=== PATIENT | female | born 1985 | race Caucasian/White ===

== ENCOUNTER 2018-06-13 11:50 | Emergency (ER) | payer BC ==
[2018-06-13 12:09] VITALS: BP 130/95; PULSE 94; O2SAT 95
[2018-06-13] MEDS ORDERED: Sodium Chloride 0.9% 1000 ML 1,000 ML IV SCH (12:15)
[2018-06-13] MEDS ORDERED: BABY ASPIRIN 81 MG CHEW PO ONE (12:15)
[2018-06-13] MEDS ORDERED: Nitrostat 0.4 MG (ED) SL ONE ×2 (12:15→12:32)
[2018-06-13] MEDS ORDERED: BABY ASPIRIN 81 MG CHEW ONE (12:32)
[2018-06-13] MEDS ORDERED: Sodium Chloride 0.9% 1000 ML 1,000 ML ONE (12:32)
[2018-06-13 12:44] LABS: Basophil (Absolute #) 0.06 (0-0.4); Eosinophil % 1.4 % (0.00-5.0); Eosinophil (Absolute #) 0.09 (0-0.5); Granulocyte Absolute (ANC) 3.61 (1.4-6.9); Granulocytes % 57.9 % (36.0-66.0); Hematocrit 46.8 % (35-47); Hemoglobin 16.2 gm/dl (12.0-16.0); Lymphocyte (Absolute #) 1.91 (1.0-4.6); Lymphocytes % 30.6 % (24.0-44.0); Mean Corpuscular Hgb Concent. 34.6 g/dl (32-36); Mean Platelet Volume 9.8 fl (6-9.5); Monocyte (Absolute #) 0.57 (0.0-1.3); Monocytes % 9.1 % (0.0-12.0); Platelet Count 314 K/mm3 (150-450); Red Cell Distribution Width 12.4 % (11.5-14.0); White Blood Count 6.2 K/mm3 (4.0-10.5)
[2018-06-13 12:49] LABS: Mean Corpuscular Hemoglobin 31.1 pg (26-32)
[2018-06-13 12:50] LABS: INR 1.05 (0.8-3.0); PROTIME 12.2 SECONDS (9.95-12.35)
[2018-06-13 13:10] LABS: ALBUMIN 4.7 g/dL (3.5-5.0); ALKALINE PHOSPHATASE 80 U/L (38-126); ANION GAP 16.8 MEQ/L (5-15); BLOOD UREA NITROGEN 21 mg/dL (7-17); CHLORIDE 100 mmol/L (98-107); Calcium 9.5 mg/dL (8.4-10.2); Carbon Dioxide 27 mmol/L (22-30); Creatinine 1 0.79 mg/dL (0.52-1.04); D-DIMER QUANTITATION < 215 ng/mL (215-500); Glucose 97 mg/dL (74-106); Potassium 3.6 mmol/L (3.5-5.1); SGOT/AST 40 U/L (14-36); SGPT/ALT 55 U/L (0-35); SODIUM 140 mmol/L (137-145)
--- NOTE | 2018-06-13 13:14 | ERPHSYRPT ---
- History of Present Illness Time Seen by Provider: 06/13/18 12:10 Historian: patient Exam Limitations: clinical condition Patient Subjective Stated Complaint: pt reports intermittent chest pain for the last 2 days as well as some high bp. readings have been 164/112, 151/102, 163/ 108, pt reports history of panic disorder. pt reports she is taking a new medication for her HTN, it is TRIAT/HCTZ 37.5/25mg. Triage Nursing Assessment: pt is aox3, pupils perrl, pt appears in no distress at this time, afebrile, resps easy and non labored, radial pulses strong and equal, cap refill < 3 seconds, no edema appreciated. Physician History: PATIENT WITH HISTORY OF HYPERCHOLESTEROLEMIA, HYPERTENSION, OBESITY, COMPLAINS OF ACUTE ONSET OF SUBSTERNAL CHEST TIGHTNESS PAIN SCALE 4/10 OVER THE PAST 2 DAYS. SHE DENIES ASSOCIATED DYSPLNEA, DIAPHORESIS, PALPITATIONS AND RADIATION OF THE PAIN TO HER NECK, JAW AND ARMS. PATIENT STATES HER XANAX MEDICATION RAN OUT COUPLE OF DAYS AGO, USED FOR ANXIETY. PATIENT DENIES CHEST PAIN UPON ARRIVAL TO THE EMERGENCY ROOM. Timing/Duration: yesterday Activities at Onset: none Quality: tightness Location: substernal Chest Pain Radiation: no radiation Severity of Pain-Max: moderate Severity of Pain-Current: none Modifying Factors: Improves With: other (ANXIETY) Associated Symptoms: denies symptoms Aspirin Treatment Today: 81 mg x 4, provided by ED Allergies/Adverse Reactions: loratadine [From Claritin] Allergy (Verified 06/13/18 12:09) Penicillins Allergy (Verified 06/13/18 12:09) Home Medications: Levothyroxine Sodium 75 Mcg [Synthroid 75 Mcg] 75 mcg PO DAILY 10/16/12 [ History] RX: Hctz/Triamterene 25/37.5 mg [Maxzide 25MG] 37.5 mg PO DAILY 06/13/18 [ History] Simvastatin 10 mg PO DAILY 06/13/18 [History] Hx Tetanus, Diphtheria Vaccination/Date Given: Yes Hx Influenza Vaccination/Date Given: Yes Hx Pneumococcal Vaccination/Date Given: No Immunizations Up to Date: Yes - Review of Systems Constitutional: No Fever, No Chills Eyes: No Symptoms Ears, Nose, & Throat: No Symptoms Respiratory: No Symptoms, No Cough, No Dyspnea Cardiac: Chest Pain, No Edema, No Syncope Abdominal/Gastrointestinal: No Symptoms, No Abdominal Pain, No Nausea, No Vomiting, No Diarrhea Genitourinary Symptoms: No Symptoms, No Dysuria Musculoskeletal: No Symptoms, No Back Pain, No Neck Pain Skin: No Rash Neurological: No Dizziness, No Focal Weakness, No Sensory Changes Psychological: No Symptoms Endocrine: No Symptoms All Other Systems: Reviewed and Negative - Past Medical History Pertinent Past Medical History: Yes Neurological History: Migraines Cardiac History: Arrhythmia, Hypertension Respiratory History: No Pertinent History Endocrine Medical History: Hypoglycemia, Other Musculoskeletal History: No Pertinent History Psycho-Social History: Anxiety, Depression, Panic Disorder Other Medical History: tachycardia, thyroid problems (doesn't know if hyper and hypo). - Past Surgical History Past Surgical History: Yes Female Surgical History: Tubal Ligation - Social History Smoking Status: Never smoker Exposure to second hand smoke: No Drug Use: none Patient Lives Alone: No - Female History Hx Last Menstrual Period: ablation Hx Now: No - Nursing Vital Signs Nursing Vital Signs: Initial Vital Signs Temperature 97.7 F 06/13/18 11:55 Pulse Rate 94 H 06/13/18 11:55 Respiratory Rate 20 06/13/18 11:55 Blood Pressure 130/95 06/13/18 11:55 O2 Sat by Pulse Oximetry 95 06/13/18 11:55 Pain Scale Pain Intensity 0 - Physical Exam General Appearance: no apparent distress, alert Eye Exam: PERRL/EOMI, eyes nml inspection Ears, Nose, Throat Exam: normal ENT inspection, moist mucous membranes Neck Exam: normal inspection, non-tender, supple, full range of motion Respiratory Exam: normal breath sounds, lungs clear, No respiratory distress Cardiovascular Exam: regular rate/rhythm, normal heart sounds, tachycardia Gastrointestinal/Abdomen Exam: soft, No tenderness, No mass Back Exam: normal inspection, No CVA tenderness, No vertebral tenderness Extremity Exam: normal inspection, normal range of motion Neurologic Exam: alert, oriented x 3, cooperative, normal mood/affect, sensation nml, No motor deficits Skin Exam: normal color, warm, dry SpO2 Interpretation: normal SpO2: 95 O2 Delivery: Room Air - Course EKG Interpreted by Me: RATE, Sinus Rhythm, Sinus Tach, NORMAL AXIS Ordered Tests: Active Orders 24 hr Category Date Time Status Esc[employer] Secretary STAT Care 06/13/18 12:16 Active EKG-ER Only STAT Care 06/13/18 12:15 Active IV Insertion STAT Care 06/13/18 12:15 Active Oxygen-ED Only Nasal Cannula 2 lpm Care 06/13/18 12:15 Active CBC W DIFF Stat Lab 06/13/18 12:19 Completed CMP Stat Lab 06/13/18 12:19 Completed D-DIMER QUANTITATION Stat Lab 06/13/18 12:19 Completed HCG,QUALITATIVE URINE Stat Lab 06/13/18 12:23 Completed PROTIME WITH INR Stat Lab 06/13/18 12:19 Completed TROPONIN Q3H Lab 06/13/18 12:19 Completed TROPONIN Q3H Lab 06/13/18 15:15 Ordered TROPONIN Q3H Lab 06/13/18 18:15 Ordered TROPONIN Q3H Lab 06/13/18 21:15 Ordered TROPONIN Q3H Lab 06/14/18 00:15 Ordered Medication Summary Generic Name Dose Route Start Last Admin Trade Name Freq PRN Reason Stop Dose Admin Sodium Chloride 1,000 mls @ 100 mls/hr 06/13/18 12:15 06/13/18 12:36 Sodium Chloride 0.9% 1000 Ml IV 07/13/18 12:14 100 mls/hr .Q10H JAN Administration Discontinued Medications Generic Name Dose Route Start Last Admin Trade Name Freq PRN Reason Stop Dose Admin Aspirin 324 mg 06/13/18 12:15 06/13/18 12:35 Baby Aspirin 81 Mg Chew PO 06/13/18 12:16 324 mg STAT ONE Administration Aspirin Confirm 06/13/18 12:32 Baby Aspirin 81 Mg Chew Administered 06/13/18 12:33 Dose 81 mg .ROUTE .STK-MED ONE Nitroglycerin 0.4 mg 06/13/18 12:15 06/13/18 12:38 Nitrostat 0.4 Mg (Ed) SL 06/13/18 12:16 Not Given STAT ONE Nitroglycerin Confirm 06/13/18 12:32 Nitrostat 0.4 Mg (Ed) Administered 06/13/18 12:33 Dose 0.4 mg SL .STK-MED ONE Lab/Rad Data: Laboratory Result Diagrams 06/13/18 12:19 06/13/18 12:19 Laboratory Results 06/13/18 06/13/18 06/13/18 Range/Units 12:23 12:19 12:19 WBC (4.0-10.5) K/mm3 RBC (4.1-5.4) M/mm3 Hgb (12.0-16.0) gm/dl Hct (35-47) % MCV (78-100) fl MCH (26-32) pg MCHC (32-36) g/dl RDW (11.5-14.0) % Plt Count (150-450) K/mm3 MPV (6-9.5) fl Gran % (36.0-66.0) % Eos # (Auto) (0-0.5) Absolute Lymphs (auto) (1.0-4.6) Absolute Monos (auto) (0.0-1.3) Lymphocytes % (24.0-44.0) % Monocytes % (0.0-12.0) % Eosinophils % (0.00-5.0) % Basophils % (0.0-0.4) % Absolute Granulocytes (1.4-6.9) Basophils # (0-0.4) PT 12.2 (9.95-12.35) SECONDS INR 1.05 (0.8-3.0) D-Dimer < 215 L (215-500) ng/mL Sodium 140 (137-145) mmol/L Potassium 3.6 (3.5-5.1) mmol/L Chloride 100 (98-107) mmol/L Carbon Dioxide 27 (22-30) mmol/L Anion Gap 16.8 H (5-15) MEQ/L BUN 21 H (7-17) mg/dL Creatinine 0.79 (0.52-1.04) mg/dL Estimated GFR > 60.0 ML/MIN Glucose 97 (74-106) mg/dL Calcium 9.5 (8.4-10.2) mg/dL Total Bilirubin 0.50 (0.2-1.3) mg/dL AST 40 H (14-36) U/L ALT 55 H (0-35) U/L Alkaline Phosphatase 80 (38-126) U/L Troponin I (0.000-0.034) ng/mL Serum Total Protein 8.0 (6.3-8.2) g/dL Albumin 4.7 (3.5-5.0) g/dL Urine HCG, Qual NEGATIVE (Negative) 06/13/18 06/13/18 Range/Units 12:19 12:19 WBC 6.2 (4.0-10.5) K/mm3 RBC 5.20 (4.1-5.4) M/mm3 Hgb 16.2 H (12.0-16.0) gm/dl Hct 46.8 (35-47) % MCV 90.0 (78-100) fl MCH 31.1 (26-32) pg MCHC 34.6 (32-36) g/dl RDW 12.4 (11.5-14.0) % Plt Count 314 (150-450) K/mm3 MPV 9.8 H (6-9.5) fl Gran % 57.9 (36.0-66.0) % Eos # (Auto) 0.09 (0-0.5) Absolute Lymphs (auto) 1.91 (1.0-4.6) Absolute Monos (auto) 0.57 (0.0-1.3) Lymphocytes % 30.6 (24.0-44.0) % Monocytes % 9.1 (0.0-12.0) % Eosinophils % 1.4 (0.00-5.0) % Basophils % 1.0 (0.0-0.4) % Absolute Granulocytes 3.61 (1.4-6.9) Basophils # 0.06 (0-0.4) PT (9.95-12.35) SECONDS INR (0.8-3.0) D-Dimer (215-500) ng/mL Sodium (137-145) mmol/L Potassium (3.5-5.1) mmol/L Chloride (98-107) mmol/L Carbon Dioxide (22-30) mmol/L Anion Gap (5-15) MEQ/L BUN (7-17) mg/dL Creatinine (0.52-1.04) mg/dL Estimated GFR ML/MIN Glucose (74-106) mg/dL Calcium (8.4-10.2) mg/dL Total Bilirubin (0.2-1.3) mg/dL AST (14-36) U/L ALT (0-35) U/L Alkaline Phosphatase (38-126) U/L Troponin I < 0.012 (0.000-0.034) ng/mL Serum Total Protein (6.3-8.2) g/dL Albumin (3.5-5.0) g/dL Urine HCG, Qual (Negative) - Progress Progress: improved Progress Note: 06/13/18 13:15 ADMINISTERED BABY ASPIRIN 81MG X 4 DOSES, PATIENT REFUSES NITROGLYCERIN - Departure Time of Disposition: 14:00 Departure Disposition: Home Clinical Impression: ATYPICAL CHEST PAIN, ANXIETY Condition: Stable Critical Care Time: No Referrals: LATHA RM [Primary Care Provider] - Additional Instructions: FOLLOWUP WITH YOUR PRIMARY CARE PROVIDER FOR EVALUATION AND STRESS TEST. ATARAX 25MG EVERY 6 HOURS NEEDED FOR ANXIETY. RETURN TO EMERGENCY ROOM FOR CHEST PAIN. Prescriptions: Hydroxyzine HCl 25 mg [Atarax 25 mg] 25 mg PO Q6H PRN PRN #15 tablet PRN Reason: Anxiety
== END 2018-06-13 14:14 | disposition home or self-care (01) ==
LOC: ED 11:50
DX: R07.89 Other chest pain (principal); F41.9 Anxiety disorder, unspecified; I10 Essential (primary) hypertension; F32.9 Major depressive disorder, single episode, unspecified; E78.00 Pure hypercholesterolemia, unspecified; E66.9 Obesity, unspecified
CPT/HCPCS: 36000; 36415; 80053; 84484; 84703; 85025; 85379; 85610; 93005; 93041; 96360; 99284; A9270-GY

== ENCOUNTER 2019-07-23 23:59 | Emergency (ER) | payer OTHER ==
[2019-07-24] MEDS ORDERED: Catapres TTS-2 PATCH TOP SCH (00:45)
--- NOTE | 2019-07-24 00:50 | ERPHSYRPT ---
- History of Present Illness Time Seen by Provider: 07/24/19 00:39 Source: patient Exam Limitations: no limitations Patient Subjective Stated Complaint: pt states that she has been not feeling well for the past few weeks, pt states that today she checked her blood pressure and it measured 156/96 and the second was 184/104, pt states that she has hypertension and is suppose to take medication, pt states that she has stop taking her blood pressure medication after the of her daughter, pt states that she has a lot of stressor in her life right now Triage Nursing Assessment: pt ambulated into the er, pt is axo x4, pt is restless and anxious, pt b/p 178/113, heart tones are clear, lung sound clear, strong pulses in all extremities, no edema present Physician History: 33yo wf w HTN who stopped her HCTZ last Nov. Pt denies focal weakness/chest pain /dyspnea/N/V/fever/preg. Timing/Duration: other (Chronic hypertension) Severity: moderate Modifying Factors: Improves With: other Associated Symptoms: denies symptoms Allergies/Adverse Reactions: loratadine [From Claritin] Allergy (Severe, Verified 07/24/19 00:25) Anaphylactic Reaction Penicillins Allergy (Mild, Verified 07/24/19 00:25) Home Medications: Levothyroxine Sodium 75 Mcg [Synthroid 75 Mcg] 75 mcg PO DAILY 10/16/12 [ History] Simvastatin 10 mg PO HS 06/13/18 [History] Cetirizine HCl/Pseudoephedrine [Zyrtec-D Tablet] 1 tab PO HS 07/24/19 [History] Omeprazole [Prilosec] 40 mg PO DAILY 07/24/19 [History] Hx Tetanus, Diphtheria Vaccination/Date Given: No (unknown) Hx Influenza Vaccination/Date Given: Yes Hx Pneumococcal Vaccination/Date Given: No Travel Risk - International Travel Have you traveled outside of the country in past 3 weeks: No If Yes where:: [place] - Coronavirus Screening Has patient experienced Coronavirus symptoms: No - Review of Systems Constitutional: Lethargy Eyes: No Symptoms Ears, Nose, & Throat: No Symptoms Respiratory: No Symptoms Cardiac: No Symptoms Abdominal/Gastrointestinal: No Symptoms Genitourinary Symptoms: No Symptoms Musculoskeletal: No Symptoms Skin: No Symptoms Neurological: No Symptoms Psychological: No Symptoms Endocrine: No Symptoms Hematologic/Lymphatic: No Symptoms Immunological/Allergic: No Symptoms - Past Medical History Pertinent Past Medical History: Yes Neurological History: Migraines ENT History: No Pertinent History Cardiac History: Arrhythmia, Hypertension Respiratory History: No Pertinent History Endocrine Medical History: Hypoglycemia, Thyroid Cancer Musculoskeletal History: No Pertinent History GI Medical History: No Pertinent History Psycho-Social History: Anxiety, Depression, Panic Disorder Other Medical History: tachycardia, thyroid problems (doesn't know if hyper and hypo). - Past Surgical History Past Surgical History: Yes Neuro Surgical History: No Pertinent History Cardiac: No Pertinent History Respiratory: No Pertinent History Gastrointestinal: No Pertinent History Genitourinary: No Pertinent History Musculoskeletal: No Pertinent History Female Surgical History: Tubal Ligation Other Surgical History: ablation - Social History Smoking Status: Former smoker Exposure to second hand smoke: No Drug Use: none Patient Lives Alone: No Significant Family History: no pertinent family hx - Female History Hx Now: No - Nursing Vital Signs Nursing Vital Signs: Initial Vital Signs Temperature 97.7 F 07/24/19 00:11 Pulse Rate 86 07/24/19 00:11 Respiratory Rate 14 07/24/19 00:11 Blood Pressure 178/113 07/24/19 00:11 O2 Sat by Pulse Oximetry 99 07/24/19 00:11 Pain Scale Pain Intensity 0 - Physical Exam General Appearance: no apparent distress Eye Exam: PERRL/EOMI, eyes nml inspection Ears, Nose, Throat Exam: normal ENT inspection, TMs normal Neck Exam: normal inspection, non-tender, supple, full range of motion, No meningismus, No mass, No Brudzinski, No Kernig's, No carotid bruit, No JVD Respiratory Exam: normal breath sounds, lungs clear, airway intact, No chest tenderness, No respiratory distress Cardiovascular Exam: regular rate/rhythm, normal heart sounds, normal peripheral pulses, No murmur Pelvic Exam: not done Rectal Exam: deferred Back Exam: normal inspection, normal range of motion, No CVA tenderness Extremity Exam: normal inspection, normal range of motion Neurologic Exam: alert, oriented x 3, cooperative, county judge II-XII nml as tested, normal mood/affect, nml cerebellar function, nml station & gait, sensation nml, No motor deficits, No sensory deficit, No disoriented, No confusion Skin Exam: normal color, warm, dry Lymphatic Exam: No adenopathy SpO2 Interpretation: normal SpO2: 99 O2 Delivery: Room Air - Course Nursing assessment & vital signs reviewed: Yes Ordered Tests: Active Orders 24 hr Category Date Time Status Isolation, Initiate & Maintain Q4H Care 07/24/19 00:24 Active Medication Summary Discontinued Medications Generic Name Dose Route Start Last Admin Trade Name Marilee PRN Reason Stop Dose Admin Clonidine HCl 0.2 mg 07/24/19 00:45 07/24/19 00:54 Catapres Tts-2 Patch TOP 08/23/19 00:44 0.2 mg Q7D JAN Administration Clonidine HCl Confirm 07/24/19 00:51 Catapres Tts-2 Patch Administered 07/24/19 00:52 Dose 0.2 mg .ROUTE .[employer] ONE - Progress Progress: improved Progress Note: 07/24/19 00:49 0.2 Clonidine patch placed for 1 week, and pt started on Norvasc 5mg po daily. - Departure Departure Disposition: Home Clinical Impression: Hypertension Condition: Stable Critical Care Time: No Referrals: LATHA RM [Primary Care Provider] - Instructions: High Blood Pressure in Adults Additional Instructions: Keep Clonidine patch on for 1 week and start Norvasc once a day Follow up with your family MD in 1-2 days return to ER for focal weakness/worsening headache/chest pain/temperature greater than 100.5 Prescriptions: Amlodipine Besylate 5 mg [Norvasc 5 mg] 5 mg PO DAILY #30 tablet
[2019-07-24] MEDS ORDERED: Catapres TTS-2 PATCH ONE (00:51)
[2019-07-24 01:04] VITALS: BP 148/91; PULSE 78
[2019-07-24 01:14] VITALS: O2SAT 99
== END 2019-07-24 01:05 | disposition home or self-care (01) ==
LOC: ED 23:59
DX: I10 Essential (primary) hypertension (principal); Z85.850 Personal history of malignant neoplasm of thyroid; F41.9 Anxiety disorder, unspecified; F32.9 Major depressive disorder, single episode, unspecified
CPT/HCPCS: 99283; A9270-GY

== ENCOUNTER 2020-07-28 21:09 | Emergency (ER) | payer BC, OTHER ==
[2020-07-28] MEDS ORDERED: Norflex 60 MG/2 ML IM ONE (21:43)
[2020-07-28] MEDS ORDERED: TORAdol 30 mg Injection IM ONE (21:43)
[2020-07-28] MEDS ORDERED: TORAdol 30 mg Injection ONE (21:45)
[2020-07-28] MEDS ORDERED: Norflex 60 MG/2 ML ONE (21:45)
--- NOTE | 2020-07-28 22:28 | ERPHSYRPT ---
- History of Present Illness Time Seen by Provider: 07/28/20 21:11 Source: patient Exam Limitations: no limitations Patient Subjective Stated Complaint: pt states "I was walking up the stairs and got a sharp pain in my back." Triage Nursing Assessment: pt ambulated into the er; pt is axo x4; c/o lower back pain; pt states 5/10 pain to lower back; no deformity present to back; tenderness with palpation to lower back; limited ROM due to pain; vitals wnl Physician History: 34 years old female presented in the ER with chief complaint of sudden onset right lower back pain this morning while she was taking a flight of stairs. Since then she is having off-and-on sharp shooting pain moderate to severe intensity which is aggravated with activity and partial relief with resting. Nonradiating pain without any associated numbness tingling weakness of lower extremities/loss of bowel or bladder control. Denies any midline back pain. No fall or trauma reported. Timing/Duration: yesterday Method of Injury: twisted Quality: sharp Back Pain Location: paraspinous muscles Severity of Pain-Max: moderate Severity of Pain-Current: moderate Modifying Factors: Improves With: immobilization, rest. Worsens With: movement Associated Symptoms: denies symptoms Previous symptoms: no prior history Allergies/Adverse Reactions: loratadine [From Claritin] Allergy (Severe, Verified 07/28/20 21:44) Anaphylactic Reaction Penicillins Allergy (Mild, Verified 07/28/20 21:44) Home Medications: Levothyroxine Sodium 75 Mcg [Synthroid 75 Mcg] 75 mcg PO DAILY 10/16/12 [History] Simvastatin 10 mg PO HS 06/13/18 [History] Cetirizine HCl/Pseudoephedrine [Zyrtec-D Tablet] 1 tab PO HS 07/24/19 [History] Omeprazole [Prilosec] 40 mg PO DAILY 07/24/19 [History] Hx Tetanus, Diphtheria Vaccination/Date Given: Yes Hx Influenza Vaccination/Date Given: Yes Hx Pneumococcal Vaccination/Date Given: No Travel Risk - International Travel Have you traveled outside of the country in past 3 weeks: No - Coronavirus Screening Are you exhibiting any of the following symptoms?: No Close contact with a COVID-19 positive Pt in past 14-21 Days: No - Vaccine Status Have you recieved a Covid-19 vaccination: No - Past Medical History Pertinent Past Medical History: Yes Neurological History: Migraines ENT History: No Pertinent History Cardiac History: Arrhythmia, Hypertension Respiratory History: No Pertinent History Endocrine Medical History: Diabetes Type II, Hypoglycemia, Hypothyroidism, Thyroid Cancer Musculoskeletal History: No Pertinent History GI Medical History: No Pertinent History Psycho-Social History: Anxiety, Depression, Panic Disorder Other Medical History: tachycardia, thyroid problems (doesn't know if hyper and hypo). - Past Surgical History Past Surgical History: Yes Neuro Surgical History: No Pertinent History Cardiac: No Pertinent History Respiratory: No Pertinent History Gastrointestinal: No Pertinent History Genitourinary: No Pertinent History Musculoskeletal: No Pertinent History Female Surgical History: Tubal Ligation Other Surgical History: ablation - Social History Smoking Status: Former smoker Exposure to second hand smoke: No Drug Use: none Patient Lives Alone: No Significant Family History: no pertinent family hx - Female History Hx Now: No - Nursing Vital Signs Nursing Vital Signs: Initial Vital Signs Temperature 97.6 F 07/28/20 21:18 Pulse Rate 112 H 07/28/20 21:18 Respiratory Rate 18 07/28/20 21:18 Blood Pressure 136/93 07/28/20 21:18 O2 Sat by Pulse Oximetry 98 07/28/20 21:18 Pain Scale Pain Intensity [Lower Back] 5 Pain Intensity 3 - Physical Exam SpO2: 98 Ordered Tests: Medication Summary Discontinued Medications Generic Name Dose Route Start Last Admin Trade Name Faizanq PRN Reason Stop Dose Admin Ketorolac Tromethamine 30 mg 07/28/20 21:43 07/28/20 21:47 Toradol 30 Mg Injection IM 07/28/20 21:44 30 mg STAT ONE Administration Ketorolac Tromethamine Confirm 07/28/20 21:45 Toradol 30 Mg Injection Administered 07/28/20 21:46 Dose 30 mg .ROUTE .STK-MED ONE Orphenadrine Citrate 60 mg 07/28/20 21:43 07/28/20 21:46 Norflex 60 Mg/2 Ml IM 07/28/20 21:44 60 mg STAT ONE Administration Orphenadrine Citrate Confirm 07/28/20 21:45 Norflex 60 Mg/2 Ml Administered 07/28/20 21:46 Dose 60 mg .ROUTE .STK-MED ONE - Progress Progress: improved, pain not gone completely Progress Note: 07/28/20 23:02 34 years old is evaluated for sudden onset low back pain especially on the right sacroiliac area. No midline tenderness at all. Negative neuro exam in lower extremities. Given symptomatic treatment, on reevaluation feeling better. Do not think she needs imaging or any other work-up and is stable for discharge on pain medication, muscle relaxant and outpatient follow-up recommended. Discussed signs symptoms of worsening including cardiac while needing return to ER which she seems understanding. Counseled pt/family regarding: diagnosis, need for follow-up - Departure Departure Disposition: Home Clinical Impression: Low back strain Qualifiers: Encounter type: initial encounter Qualified Code(s): S39.012A - Strain of muscle, fascia and tendon of lower back, initial encounter Condition: Stable Critical Care Time: No Referrals: LATHA RM [Primary Care Provider] - (1-2 days for reevaluation) Instructions: Low Back Pain (DC) Additional Instructions: Take pain medications and muscle relaxants as needed. Avoid exertional activities. Follow-up with primary care for reevaluation. Return to ER for intractable pain, numbness tingling weakness of lower extremities/loss of bowel or bladder control. Prescriptions: Hydrocodone/APAP 5/325 [[place] 5/325 mg] 1 each PO Q6H PRN PRN #10 tablet MDD 4 PRN Reason: Pain Cyclobenzaprine HCl 10 mg [Flexeril 10 MG] 10 mg PO TID #20 tablet
[2020-07-28 23:12] VITALS: BP 121/78; PULSE 98
[2020-07-29 00:03] VITALS: O2SAT 98
== END 2020-07-28 23:12 | disposition home or self-care (01) ==
LOC: ED 21:09
DX: S39.012A Strain of muscle, fascia and tendon of lower back, initial encounter (principal); X50.3XXA Overexertion from repetitive movements, initial encounter; X50.9XXA Other and unspecified overexertion or strenuous movements or postures, initial encounter; Y93.01 Activity, walking, marching and hiking; Y92.89 Other specified places as the place of occurrence of the external cause
CPT/HCPCS: 96372; 99284; J1885; J2360

== ENCOUNTER 2020-10-14 19:53 | Emergency (ER) | payer OTHER ==
[2020-10-14] MEDS ORDERED: TYLENOL EXTRA STRENGTH 500 MG PO PRN (20:33)
--- NOTE | 2020-10-14 20:33 | ERPHSYRPT ---
- History of Present Illness Historian: patient Patient Subjective Stated Complaint: pt states she has had intermittent abd pain today. states 3 times she has had pain in her upper abd that feels like her intestines are twisting. states no pain in between. Triage Nursing Assessment: pt alert and oriented, answers questions approp. pt ambulatory with steady gait noted. respirations nonlabored with lungs cta. abd soft and nontender to light palpation. bowel sounds present x4. Physician History: 35 yo obese wf w RUQ pain x8 hours. Pain is 0 at present but has been up to a 10. She denies N/V but has had some diarrhea yesterday. Pt also denies melena/hematochezia/dysuria/hematuria/chest pain/dyspnea. She has never had this pain before. Timing/Duration: other (8hrs) Quality: other (twisting) Abdominal Pain Onset Location: RUQ Pain Radiation: no radiation Severity of Pain-Max: severe Severity of Pain-Current: none Modifying Factors: Improves With: movement Associated Symptoms: diarrhea, No back, No chest pain, No diaphoresis, No fever/chills, No fatigue, No headache, No heartburn, No loss of appetite, No nausea, No neck pain, No rash, No shortness of breath, No syncope, No vomiting, No weakness Previous symptoms: no prior history Allergies/Adverse Reactions: loratadine [From Claritin] Allergy (Severe, Verified 10/14/20 20:19) Anaphylactic Reaction levothyroxine sodium [From Euthyrox] Allergy (Intermediate, Verified 10/14/20 20:19) Hives Penicillins Allergy (Mild, Verified 10/14/20 20:19) Home Medications: Levothyroxine Sodium 75 Mcg [Synthroid 75 Mcg] 75 mcg PO DAILY 10/16/12 [History] Simvastatin 10 mg PO HS 06/13/18 [History] Cetirizine HCl/Pseudoephedrine [Zyrtec-D Tablet] 1 tab PO HS 07/24/19 [History] Omeprazole [Prilosec] 40 mg PO DAILY 07/24/19 [History] Hx Tetanus, Diphtheria Vaccination/Date Given: Yes Hx Influenza Vaccination/Date Given: Yes Hx Pneumococcal Vaccination/Date Given: No Immunizations Up to Date: Yes Travel Risk - International Travel Have you traveled outside of the country in past 3 weeks: No - Coronavirus Screening Are you exhibiting any of the following symptoms?: No Close contact with a COVID-19 positive Pt in past 14-21 Days: No - Vaccine Status Have you recieved a Covid-19 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: 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[employer] - Vaccination Dates Date of 2cond Vaccination (if applicable): september 2020 - Review of Systems Constitutional: No Symptoms Eyes: No Symptoms Ears, Nose, & Throat: No Symptoms Respiratory: No Symptoms Cardiac: No Symptoms Abdominal/Gastrointestinal: No Symptoms, Abdominal Pain, Diarrhea Genitourinary Symptoms: No Symptoms Musculoskeletal: No Symptoms Skin: No Symptoms Neurological: No Symptoms Psychological: No Symptoms Endocrine: No Symptoms Hematologic/Lymphatic: No Symptoms Immunological/Allergic: Pollen Allergy - Past Medical History Pertinent Past Medical History: Yes Neurological History: Migraines ENT History: No Pertinent History Cardiac History: Arrhythmia, Hypertension Respiratory History: No Pertinent History Endocrine Medical History: Diabetes Type II, Hypothyroidism Musculoskeletal History: No Pertinent History GI Medical History: No Pertinent History Psycho-Social History: Anxiety, Depression, Panic Disorder Other Medical History: tachycardia, thyroid problems (doesn't know if hyper and hypo). - Past Surgical History Past Surgical History: Yes Neuro Surgical History: No Pertinent History Cardiac: No Pertinent History Respiratory: No Pertinent History Gastrointestinal: No Pertinent History Genitourinary: No Pertinent History Musculoskeletal: No Pertinent History Female Surgical History: Tubal Ligation Other Surgical History: uterine ablation - Social History Smoking Status: Former smoker Exposure to second hand smoke: No Drug Use: none Patient Lives Alone: No Significant Family History: no pertinent family hx - Female History Hx Last Menstrual Period: uterine ablation- irreg Hx Now: No - Nursing Vital Signs Nursing Vital Signs: Initial Vital Signs Temperature 98.2 F 10/14/20 20:07 Pulse Rate 115 H 10/14/20 20:07 Respiratory Rate 18 10/14/20 20:07 Blood Pressure 140/89 10/14/20 20:07 O2 Sat by Pulse Oximetry 97 10/14/20 20:07 Pain Scale Pain Intensity 0 Hypertensive-tachycardic - Physical Exam General Appearance: no apparent distress Eye Exam: PERRL/EOMI, eyes nml inspection Ears, Nose, Throat Exam: normal ENT inspection, TMs normal, pharynx normal, moist mucous membranes Neck Exam: normal inspection, non-tender, supple, full range of motion Respiratory Exam: normal breath sounds, lungs clear, airway intact Cardiovascular Exam: tachycardia, No murmur Gastrointestinal/Abdomen Exam: soft, normal bowel sounds, tenderness (Mild RUQ ttp/Pain worse when pt sits up) Back Exam: normal inspection, normal range of motion, No CVA tenderness Extremity Exam: normal inspection, normal range of motion Neurologic Exam: alert, oriented x 3, cooperative, 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 as tested, normal mood/affect Skin Exam: normal color, warm, dry, No rash Lymphatic Exam: No adenopathy SpO2 Interpretation: normal SpO2: 97 O2 Delivery: Room Air - CT Exams Abdomen/Pelvis CT Interpretation: Tele-radiologist Report (MERCER/Nothing acute) Ordered Tests: Active Orders 24 hr Category Date Time Status IV Insertion STAT Care 10/14/20 20:27 Completed ABDOMEN AND PELVIS W/0 CONTRAS [CT] Stat Exams 10/14/20 21:36 Taken AMYLASE Stat Lab 10/14/20 20:30 Completed CBC W DIFF Stat Lab 10/14/20 20:30 Completed CMP Stat Lab 10/14/20 20:30 Completed HCG QUALITATIVE,SERUM Stat Lab 10/14/20 20:30 Completed LIPASE Stat Lab 10/14/20 20:30 Completed TROPONIN Q3H Lab 10/14/20 20:30 Completed UA W/RFX UR CULTURE Stat Lab 10/14/20 20:28 Completed Medication Summary Discontinued Medications Generic Name Dose Route Start Last Admin Trade Name Freq PRN Reason Stop Dose Admin Acetaminophen 1,000 mg 10/14/20 20:33 10/14/20 20:35 Tylenol Extra Strength 500 Mg PO 11/13/20 20:32 1,000 mg Q4H PRN PRN Administration HEADACHE Acetaminophen Confirm 10/14/20 20:34 Tylenol Extra Strength 500 Mg Administered 10/14/20 20:35 Dose 1,000 mg .ROUTE .STK-MED ONE Ketorolac Tromethamine 30 mg 10/14/20 23:13 10/14/20 23:23 Toradol 30 Mg Injection IV 10/14/20 23:14 30 mg STAT ONE Administration Ketorolac Tromethamine Confirm 10/14/20 23:20 Toradol 30 Mg Injection Administered 10/14/20 23:21 Dose 30 mg .ROUTE .STK-MED ONE Lab/Rad Data: Laboratory Result Diagrams 10/14/20 20:30 10/14/20 20:30 Laboratory Results 10/14/20 10/14/20 10/14/20 Range/Units 20:30 20:30 20:30 WBC (4.0-10.5) K/mm3 RBC (4.1-5.4) M/mm3 Hgb (12.0-16.0) gm/dl Hct (35-47) % MCV (78-100) fl MCH (26-32) pg MCHC (32-36) g/dl RDW (11.5-14.0) % Plt Count (150-450) K/mm3 MPV (7.5-11.0) fl Gran % (36.0-66.0) % Eos # (Auto) (0-0.5) Absolute Lymphs (auto) (1.0-4.6) Absolute Monos (auto) (0.0-1.3) Lymphocytes % (24.0-44.0) % Monocytes % (0.0-12.0) % Eosinophils % (0.00-5.0) % Basophils % (0.0-0.4) % Absolute Granulocytes (1.4-6.9) Basophils # (0-0.4) Sodium 138 (137-145) mmol/L Potassium 3.1 L (3.5-5.1) mmol/L Chloride 97 L (98-107) mmol/L Carbon Dioxide 25 (22-30) mmol/L Anion Gap 18.5 H (5-15) MEQ/L BUN 21 H (7-17) mg/dL Creatinine 0.86 (0.52-1.04) mg/dL Estimated GFR > 60.0 ML/MIN Glucose 118 H (74-106) mg/dL Calcium 10.1 (8.4-10.2) mg/dL Total Bilirubin 0.30 (0.2-1.3) mg/dL AST 33 (14-36) U/L ALT 31 (0-35) U/L Alkaline Phosphatase 76 (38-126) U/L Troponin I < 0.012 (0.000-0.034) ng/mL Serum Total Protein 8.2 (6.3-8.2) g/dL Albumin 4.9 (3.5-5.0) g/dL Amylase 48 (30-110) U/L Lipase 53 (23-300) U/L Serum , Qual NEGATIVE (Negative) Urine Color (YELLOW) Urine Appearance (CLEAR) Urine pH (5-6) Ur Specific [place] (1.005-1.025) Urine Protein (Negative) Urine Ketones (NEGATIVE) Urine Blood (0-5) Korey/ul Urine Nitrite (NEGATIVE) Urine Bilirubin (NEGATIVE) Urine Urobilinogen (0-1) mg/dL Ur Leukocyte Esterase (NEGATIVE) Urine WBC (Auto) (0-5) /HPF Urine RBC (Auto) (0-2) /HPF U Epithel Cells (Auto) (FEW) /HPF Urine Bacteria (Auto) (NEGATIVE) /HPF Urine Mucus (Auto) (NEGATIVE) /HPF Urine Culture Reflexed (NO) Urine Glucose (NEGATIVE) mg/dL 10/14/20 10/14/20 Range/Units 20:30 20:28 WBC 11.8 H (4.0-10.5) K/mm3 RBC 4.90 (4.1-5.4) M/mm3 Hgb 14.9 (12.0-16.0) gm/dl Hct 44.5 (35-47) % MCV 90.8 (78-100) fl MCH 30.4 (26-32) pg MCHC 33.5 (32-36) g/dl RDW 12.9 (11.5-14.0) % Plt Count 393 (150-450) K/mm3 MPV 9.6 (7.5-11.0) fl Gran % 73.8 H (36.0-66.0) % Eos # (Auto) 0.12 (0-0.5) Absolute Lymphs (auto) 2.13 (1.0-4.6) Absolute Monos (auto) 0.79 (0.0-1.3) Lymphocytes % 18.1 L (24.0-44.0) % Monocytes % 6.7 (0.0-12.0) % Eosinophils % 1.0 (0.00-5.0) % Basophils % 0.4 (0.0-0.4) % Absolute Granulocytes 8.70 H (1.4-6.9) Basophils # 0.05 (0-0.4) Sodium (137-145) mmol/L Potassium (3.5-5.1) mmol/L Chloride (98-107) mmol/L Carbon Dioxide (22-30) mmol/L Anion Gap (5-15) MEQ/L BUN (7-17) mg/dL Creatinine (0.52-1.04) mg/dL Estimated GFR ML/MIN Glucose (74-106) mg/dL Calcium (8.4-10.2) mg/dL Total Bilirubin (0.2-1.3) mg/dL AST (14-36) U/L ALT (0-35) U/L Alkaline Phosphatase (38-126) U/L Troponin I (0.000-0.034) ng/mL Serum Total Protein (6.3-8.2) g/dL Albumin (3.5-5.0) g/dL Amylase (30-110) U/L Lipase (23-300) U/L Serum , Qual (Negative) Urine Color YELLOW (YELLOW) Urine Appearance CLEAR (CLEAR) Urine pH 6.0 (5-6) Ur Specific [place] 1.015 (1.005-1.025) Urine Protein NEGATIVE (Negative) Urine Ketones NEGATIVE (NEGATIVE) Urine Blood NEGATIVE (0-5) Korey/ul Urine Nitrite NEGATIVE (NEGATIVE) Urine Bilirubin NEGATIVE (NEGATIVE) Urine Urobilinogen NEGATIVE (0-1) mg/dL Ur Leukocyte Esterase NEGATIVE (NEGATIVE) Urine WBC (Auto) 0-2 (0-5) /HPF Urine RBC (Auto) 0-2 (0-2) /HPF U Epithel Cells (Auto) RARE (FEW) /HPF Urine Bacteria (Auto) RARE (NEGATIVE) /HPF Urine Mucus (Auto) SLIGHT (NEGATIVE) /HPF Urine Culture Reflexed NO (NO) Urine Glucose NEGATIVE (NEGATIVE) mg/dL - Progress Progress Note: 10/14/20 23:13 30mg IV Toradol Counseled pt/family regarding: lab results, diagnosis, need for follow-up, rad results - Departure Departure Disposition: Home Clinical Impression: Abdominal pain Condition: Stable Critical Care Time: No Referrals: LATHA RM [Primary Care Provider] - Instructions: Acute Abdomen (Belly Pain), Adult (DC) Additional Instructions: Follow up with your family MD in 1-2 days Return to ER for increasing pain or temperature greater than 100.5 Prescriptions: Dicyclomine HCl 20 mg [Bentyl 20 mg] 20 mg PO Q4H PRN PRN #14 tablet PRN Reason: Pain
[2020-10-14] MEDS ORDERED: TYLENOL EXTRA STRENGTH 500 MG ONE (20:34)
[2020-10-14 20:47] LABS: Appearance CLEAR (CLEAR); Bacteria RARE /HPF (NEGATIVE); Bilirubin NEGATIVE (NEGATIVE); Blood NEGATIVE Ery/ul (0-5); Epithelial Cells RARE /HPF (FEW); Glucose NEGATIVE (NEGATIVE); Ketones NEGATIVE (NEGATIVE); Leukocyte Esterase NEGATIVE (NEGATIVE); Mucus SLIGHT /HPF (NEGATIVE); Nitrite NEGATIVE (NEGATIVE); Protein,Urine Dip NEGATIVE (Negative); RBC 0-2 /HPF (0-2); Specific Gravity 1.015 (1.005-1.025); Urobilinogen NEGATIVE mg/dL (0-1); WBC 0-2 /HPF (0-5)
[2020-10-14 20:53] LABS: BASOPHIL % 0.4 % (0.0-0.4); Basophil (Absolute #) 0.05 (0-0.4); Eosinophil (Absolute #) 0.12 (0-0.5); Hematocrit 44.5 % (35-47); Hemoglobin 14.9 gm/dl (12.0-16.0); Lymphocyte (Absolute #) 2.13 (1.0-4.6); Lymphocytes % 18.1 % (24.0-44.0); Mean Cell Volume 90.8 fl (78-100); Mean Corpuscular Hemoglobin 30.4 pg (26-32); Mean Corpuscular Hgb Concent. 33.5 g/dl (32-36); Mean Platelet Volume 9.6 fl (7.5-11.0); Monocyte (Absolute #) 0.79 (0.0-1.3); Monocytes % 6.7 % (0.0-12.0); Neutrophil % 73.8 % (36.0-66.0); Platelet Count 393 K/mm3 (150-450); Red Cell Distribution Width 12.9 % (11.5-14.0); White Blood Count 11.8 K/mm3 (4.0-10.5)
[2020-10-14 21:06] LABS: ALBUMIN 4.9 g/dL (3.5-5.0); ALKALINE PHOSPHATASE 76 U/L (38-126); AMYLASE 48 U/L (30-110); ANION GAP 18.5 MEQ/L (5-15); BLOOD UREA NITROGEN 21 mg/dL (7-17); CHLORIDE 97 mmol/L (98-107); Calcium 10.1 mg/dL (8.4-10.2); Carbon Dioxide 25 mmol/L (22-30); Creatinine 1 0.86 mg/dL (0.52-1.04); EST GLOMERULAR FILTRATION RATE > 60.0 ML/MIN; Glucose 118 mg/dL (74-106); LIPASE 53 U/L (23-300); Potassium 3.1 mmol/L (3.5-5.1); SGOT/AST 33 U/L (14-36); SGPT/ALT 31 U/L (0-35); SODIUM 138 mmol/L (137-145); Total Protein 8.2 g/dL (6.3-8.2)
[2020-10-14 22:21] VITALS: O2SAT 97
[2020-10-14] MEDS ORDERED: TORAdol 30 mg Injection IV ONE (23:13)
[2020-10-14 23:17] VITALS: BP 135/88; PULSE 99
[2020-10-14] MEDS ORDERED: TORAdol 30 mg Injection ONE (23:20)
--- NOTE | 2020-10-15 08:59 | XRAY ---
Indication: Right upper quadrant pain. Diarrhea. Multiple contiguous axial images obtained through the abdomen and pelvis without contrast. Comparison: None Lung bases demonstrates minimal dependent atelectasis and small left lower lobe calcified granuloma. No infiltrate or effusion. Heart is not enlarged. Noncontrasted stomach and bowel loops appear nonobstructed. Normal appendix. Minimal scattered colonic diverticulosis without diverticulitis. No free fluid/air. Diffuse fatty hepatomegaly measuring 20.5 cm and 1 cm right mid to lower renal cyst. Remaining liver, gallbladder, pancreas, spleen, adrenal glands, kidneys, ureters, bladder, uterus, and aorta are unremarkable for noncontrast exam. Osseous structures intact with minimal levoscoliosis centered at L3. Impression: 1. Left lower lobe calcified granuloma, fatty hepatomegaly, right renal cyst, and colonic diverticulosis. 2. Remaining CT abdomen/pelvis without contrast exam is negative. Comment: Preliminary interpretation made by [facility]. No critical discrepancy.
== END 2020-10-14 23:56 | disposition home or self-care (01) ==
LOC: ED 19:53
DX: R10.9 Unspecified abdominal pain (principal)
CPT/HCPCS: 36000; 36415; 74176; 80053; 81001; 81025; 82150; 83690; 84484; 85025; 96374; 99284; J1885; A9270-GY

== ENCOUNTER 2021-09-06 10:02 | Emergency (ER) | payer OTHER ==
[2021-09-06 10:10] VITALS: O2SAT 98
--- NOTE | 2021-09-06 10:28 | ERPHSYRPT ---
- History of Present Illness Historian: patient Exam Limitations: no limitations Patient Subjective Stated Complaint: PT states "I have had chest pain for the past 24 hours. It hurts when I breath in. I am not sure if it is pleurasy again or not." Triage Nursing Assessment: Pt presented alert and oriented X3, skin pwd Pt ambulates with an upright steady gait, able to speak in clear full sentences pt in no apparent respiratory distress. Pt resting comfortably on the bed. Physician History: 35 yo wf w mid-sternal "chest tightness" x 36 hours. It does not radiate, 5 out of 10 on scale, and worse w deep breaths. She denies N/V/D/coryza. Pt has a h/o HTN/DM/Hyperlipidemia/Hypothyroidisn. Pt denies tobacco use/ID/CAD/PE/DVT. She is tachy and states that she is always tachy. She has a mild cough which is nonproductive, and home CV19 test neg yesterday. Timing/Duration: other (36 hours) Quality: tightness Location: substernal Chest Pain Radiation: no radiation Severity of Pain-Max: moderate Severity of Pain-Current: moderate Modifying Factors: Improves With: breathing (Worse w deep breaths) Associated Symptoms: denies symptoms Prior Chest Pain/Cardiac Workup: no prior chest pain Nitro Today/Relief: no nitro taken today Aspirin Treatment Today: no aspirin today Allergies/Adverse Reactions: loratadine [From Claritin] Allergy (Severe, Verified 10/14/20 20:19) Anaphylactic Reaction levothyroxine sodium [From Euthyrox] Allergy (Intermediate, Verified 10/14/20 20:19) Hives Penicillins Allergy (Mild, Verified 10/14/20 20:19) Home Medications: Levothyroxine Sodium 75 Mcg [Synthroid 75 Mcg] 75 mcg PO DAILY 10/16/12 [History] Cetirizine HCl/Pseudoephedrine [Zyrtec-D Tablet] 1 tab PO HS 07/24/19 [History] Omeprazole [Prilosec] 40 mg PO DAILY 07/24/19 [History] Ergocalciferol (Vitamin D2) [Vitamin D2] 1 cap PO DAILY 09/06/21 [History] Losartan Potassium [Cozaar] 25 mg PO DAILY 09/06/21 [History] hydrOXYzine HCL [Hydroxyzine HCl] 10 mg PO DAILY PRN 09/06/21 [History] Hx Tetanus, Diphtheria Vaccination/Date Given: Yes Hx Influenza Vaccination/Date Given: Yes Hx Pneumococcal Vaccination/Date Given: No Immunizations Up to Date: Yes Travel Risk - International Travel Have you traveled outside of the country in past 3 weeks: No - Coronavirus Screening Are you exhibiting any of the following symptoms?: No Close contact with a COVID-19 positive Pt in past 14-21 Days: No - Vaccine Status Have you recieved a 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[employer] - Vaccination Dates Date of 2cond Vaccination (if applicable): september 2020 - Review of Systems Constitutional: No Symptoms Eyes: No Symptoms Ears, Nose, & Throat: No Symptoms Respiratory: No Symptoms Cardiac: No Symptoms, Chest Pain Abdominal/Gastrointestinal: No Symptoms Genitourinary Symptoms: No Symptoms Musculoskeletal: No Symptoms Skin: No Symptoms Neurological: No Symptoms Psychological: No Symptoms Endocrine: No Symptoms Hematologic/Lymphatic: No Symptoms Immunological/Allergic: No Symptoms - Past Medical History Pertinent Past Medical History: Yes Neurological History: Migraines ENT History: No Pertinent History Cardiac History: High Cholesterol, Hypertension Respiratory History: Asthma Endocrine Medical History: Diabetes Type II, Hypothyroidism Musculoskeletal History: No Pertinent History GI Medical History: No Pertinent History Psycho-Social History: Anxiety, Depression, Panic Disorder Other Medical History: METFORMIN (SHE CURRENTLY HASN'T BEEN TAKING HER BLOOD SUGARS HAVE BEEN RUNNING LOW).; BILATERAL CARPAL TUNNEL SYNDROME AND PLANS TO HAVE RIGHT CTR IN 02/09. SHE REPORTS HER HANDS GO NUMB CONSTANTLY - Past Surgical History Past Surgical History: Yes Neuro Surgical History: No Pertinent History Cardiac: No Pertinent History Respiratory: No Pertinent History Gastrointestinal: No Pertinent History Genitourinary: No Pertinent History Musculoskeletal: No Pertinent History Female Surgical History: Tubal Ligation Other Surgical History: uterine ablation. carpal tunnel right hand - Social History Smoking Status: Former smoker Exposure to second hand smoke: No Drug Use: none Patient Lives Alone: No Significant Family History: no pertinent family hx - Female History Hx Last Menstrual Period: 03/2021 Hx Now: No (ablasion) - Nursing Vital Signs Nursing Vital Signs: Initial Vital Signs Temperature 98.1 F 09/06/21 10:03 Pulse Rate 111 H 09/06/21 10:03 Respiratory Rate 20 09/06/21 10:03 Blood Pressure 151/105 09/06/21 10:03 O2 Sat by Pulse Oximetry 98 09/06/21 10:03 Pain Scale Pain Intensity 4 Tachy/Hypertensive - Physical Exam General Appearance: no apparent distress Eye Exam: PERRL/EOMI, eyes nml inspection Ears, Nose, Throat Exam: normal ENT inspection, TMs normal, pharynx normal, moist mucous membranes Neck Exam: normal inspection, non-tender, supple, full range of motion, No meningismus, No mass, No Brudzinski, No Kernig's, No carotid bruit Respiratory Exam: normal breath sounds, lungs clear, airway intact, No respiratory distress Cardiovascular Exam: tachycardia, capillary refill <2 sec, No murmur Gastrointestinal/Abdomen Exam: soft, normal bowel sounds, No tenderness Back Exam: normal inspection, normal range of motion, No CVA tenderness, No vertebral tenderness Extremity Exam: normal inspection, normal range of motion Neurologic Exam: alert, oriented x 3, cooperative, telephone maintainer II-XII nml as tested, normal mood/affect, nml cerebellar function, nml station & gait, sensation nml, No motor deficits, No sensory deficit Skin Exam: normal color Lymphatic Exam: No adenopathy SpO2 Interpretation: normal SpO2: 98 O2 Delivery: Room Air - Course Nursing assessment & vital signs reviewed: Yes EKG Interpreted by Me: RATE (Sinus tach/Borderline prolonged QTc/Low voltage/No acute ST segment changes) - Radiology Exams Chest X-ray Interpretation: Interpreted by me (NAD) Ordered Tests: Active Orders 24 hr Category Date Time Status Cst STAT Care 09/06/21 10:15 Completed EKG-ER Only STAT Care 09/06/21 10:14 Completed CHEST 1 VIEW (PORTABLE) Stat Exams 09/06/21 11:08 Taken CBC W DIFF Stat Lab 09/06/21 10:30 Completed CMP Stat Lab 09/06/21 10:30 Completed D-DIMER QUANTITATIVE Stat Lab 09/06/21 10:30 Completed NT PRO BNP Stat Lab 09/06/21 10:30 Completed PROTIME WITH INR Stat Lab 09/06/21 10:30 Completed PTT Stat Lab 09/06/21 10:30 Completed TROPONIN Q3H Lab 09/06/21 10:30 Completed Medication Summary Discontinued Medications Generic Name Dose Route Start Last Admin Trade Name Freq PRN Reason Stop Dose Admin Ketorolac Tromethamine 30 mg 09/06/21 11:19 09/06/21 11:24 Ketorolac Tromethamine 30 Mg/Ml Inj IM 09/06/21 11:20 30 mg STAT ONE Administration Ketorolac Tromethamine Confirm 09/06/21 11:21 Ketorolac Tromethamine 30 Mg/Ml Inj Administered 09/06/21 11:22 Dose 30 mg .ROUTE .STK-MED ONE Lab/Rad Data: Laboratory Result Diagrams 09/06/21 10:30 09/06/21 10:30 Laboratory Results 09/06/21 09/06/21 09/06/21 Range/Units 10:30 10:30 10:30 WBC (4.0-10.5) x10^3/uL RBC (4.1-5.4) x10^6/uL Hgb (12.0-16.0) g/dL Hct (35-47) % MCV (78-100) fL MCH (26-32) pg MCHC (32-36) g/dL RDW (11.5-14.0) % Plt Count (150-450) x10^3/uL MPV (7.5-11.0) fL Gran % (36.0-66.0) % Immature Gran % (Auto) (0.00-0.4) % Nucleat RBC Rel Count (0.00-0.1) % Eos # (Auto) (0-0.5) x10^3/uL Immature Gran # (Auto) (0.00-0.03) x10^3u/L Absolute Lymphs (auto) (1.0-4.6) x10^3/uL Absolute Monos (auto) (0.0-1.3) x10^3/uL Absolute Nucleated RBC (0.00-0.01) x10^3u/L Lymphocytes % (24.0-44.0) % Monocytes % (0.0-12.0) % Eosinophils % (0.00-5.0) % Basophils % (0.0-0.4) % Absolute Granulocytes (1.4-6.9) x10^3/uL Basophils # (0-0.4) x10^3/uL PT 10.3 (9.4-12.5) SECONDS INR 0.97 (0.8-3.0) APTT 25.4 (25.1-36.5) SECONDS D-Dimer 0.19 (0.0-0.50) mg/L Sodium 138 (137-145) mmol/L Potassium 3.4 L (3.5-5.1) mmol/L Chloride 99 (98-107) mmol/L Carbon Dioxide 29 (22-30) mmol/L Anion Gap 13.5 (5-15) MEQ/L BUN 16 (7-17) mg/dL Creatinine 0.74 (0.52-1.04) mg/dL Estimated GFR > 60.0 ML/MIN Glucose 108 H (74-106) mg/dL Calcium 9.1 (8.4-10.2) mg/dL Total Bilirubin 0.30 (0.2-1.3) mg/dL AST 39 H (14-36) U/L ALT 35 (0-35) U/L Alkaline Phosphatase 71 (38-126) U/L Troponin I < 0.012 (0.000-0.034) ng/mL NT-Pro-B Natriuret Pep 43.9 (0-450) pg/mL Serum Total Protein 7.2 (6.3-8.2) g/dL Albumin 4.2 (3.5-5.0) g/dL 09/06/21 Range/Units 10:30 WBC 7.3 (4.0-10.5) x10^3/uL RBC 4.78 (4.1-5.4) x10^6/uL Hgb 14.7 (12.0-16.0) g/dL Hct 42.8 (35-47) % MCV 89.5 (78-100) fL MCH 30.8 (26-32) pg MCHC 34.3 (32-36) g/dL RDW 12.6 (11.5-14.0) % Plt Count 312 (150-450) x10^3/uL MPV 8.9 (7.5-11.0) fL Gran % 69.3 H (36.0-66.0) % Immature Gran % (Auto) 0.5 H (0.00-0.4) % Nucleat RBC Rel Count 0.0 (0.00-0.1) % Eos # (Auto) 0.13 (0-0.5) x10^3/uL Immature Gran # (Auto) 0.04 H (0.00-0.03) x10^3u/L Absolute Lymphs (auto) 1.53 (1.0-4.6) x10^3/uL Absolute Monos (auto) 0.50 (0.0-1.3) x10^3/uL Absolute Nucleated RBC 0.00 (0.00-0.01) x10^3u/L Lymphocytes % 20.9 L (24.0-44.0) % Monocytes % 6.8 (0.0-12.0) % Eosinophils % 1.8 (0.00-5.0) % Basophils % 0.7 (0.0-0.4) % Absolute Granulocytes 5.07 (1.4-6.9) x10^3/uL Basophils # 0.05 (0-0.4) x10^3/uL PT (9.4-12.5) SECONDS INR (0.8-3.0) APTT (25.1-36.5) SECONDS D-Dimer (0.0-0.50) mg/L Sodium (137-145) mmol/L Potassium (3.5-5.1) mmol/L Chloride (98-107) mmol/L Carbon Dioxide (22-30) mmol/L Anion Gap (5-15) MEQ/L BUN (7-17) mg/dL Creatinine (0.52-1.04) mg/dL Estimated GFR ML/MIN Glucose (74-106) mg/dL Calcium (8.4-10.2) mg/dL Total Bilirubin (0.2-1.3) mg/dL AST (14-36) U/L ALT (0-35) U/L Alkaline Phosphatase (38-126) U/L Troponin I (0.000-0.034) ng/mL NT-Pro-B Natriuret Pep (0-450) pg/mL Serum Total Protein (6.3-8.2) g/dL Albumin (3.5-5.0) g/dL - Progress Air Movement: good Progress Note: 09/06/21 11:21 30mg IM Toradol Counseled pt/family regarding: lab results, diagnosis, need for follow-up, rad results - Departure Departure Disposition: Home Clinical Impression: Chest pain, Cough Condition: Stable Critical Care Time: No Referrals: LATHA RM [Primary Care Provider] - Follow up/PCP as directed Instructions: Chest Pain (DC) Additional Instructions: Follow up with your family MD in 2-3 days Return to ER for increasing chest pain, temperature greater than 100.5, or increasing shortness of breath Prescriptions: Azithromycin [Zithromax] 250 mg PO DAILY #6 tablet
[2021-09-06 10:39] LABS: Absolute Neutrophil Ct (ANC) 5.07 x10^3/uL (1.4-6.9); Basophil (Absolute #) 0.05 x10^3/uL (0-0.4); Eosinophil % 1.8 % (0.00-5.0); Eosinophil (Absolute #) 0.13 x10^3/uL (0-0.5); Hematocrit 42.8 % (35-47); Hemoglobin 14.7 g/dL (12.0-16.0); Lymphocyte (Absolute #) 1.53 x10^3/uL (1.0-4.6); Lymphocytes % 20.9 % (24.0-44.0); Mean Cell Volume 89.5 fL (78-100); Mean Corpuscular Hemoglobin 30.8 pg (26-32); Mean Corpuscular Hgb Concent. 34.3 g/dL (32-36); Mean Platelet Volume 8.9 fL (7.5-11.0); Monocytes % 6.8 % (0.0-12.0); Neutrophil % 69.3 % (36.0-66.0); Platelet Count 312 x10^3/uL (150-450); Red Blood Count 4.78 x10^6/uL (4.1-5.4); Red Cell Distribution Width 12.6 % (11.5-14.0); White Blood Count 7.3 x10^3/uL (4.0-10.5)
[2021-09-06 11:02] LABS: D-DIMER QUANTITATIVE 0.19 mg/L (0.0-0.50); INR 0.97 (0.8-3.0); PROTIME 10.3 SECONDS (9.4-12.5); PTT 25.4 SECONDS (25.1-36.5)
[2021-09-06 11:05] LABS: ALBUMIN 4.2 g/dL (3.5-5.0); ALKALINE PHOSPHATASE 71 U/L (38-126); ANION GAP 13.5 MEQ/L (5-15); BLOOD UREA NITROGEN 16 mg/dL (7-17); CHLORIDE 99 mmol/L (98-107); Calcium 9.1 mg/dL (8.4-10.2); Carbon Dioxide 29 mmol/L (22-30); Creatinine 1 0.74 mg/dL (0.52-1.04); EST GLOMERULAR FILTRATION RATE > 60.0 ML/MIN; Glucose 108 mg/dL (74-106); NT PRO BNP 43.9 pg/mL (0-450); Potassium 3.4 mmol/L (3.5-5.1); SGOT/AST 39 U/L (14-36); SGPT/ALT 35 U/L (0-35); SODIUM 138 mmol/L (137-145); Total Protein 7.2 g/dL (6.3-8.2)
[2021-09-06] MEDS ORDERED: TORAdol 30 mg Injection IM ONE (11:19)
[2021-09-06] MEDS ORDERED: TORAdol 30 mg Injection ONE (11:21)
[2021-09-06 11:23] VITALS: BP 128/89; PULSE 102
--- NOTE | 2021-09-06 20:21 | XRAY ---
Indication: Chest pain. Comparison: June 16, 2019. Portable chest again demonstrates normal heart, lungs, and bony thorax.
== END 2021-09-06 11:42 | disposition home or self-care (01) ==
LOC: ED 10:02
DX: R07.9 Chest pain, unspecified (principal); R05.9 Cough, unspecified; I10 Essential (primary) hypertension; E11.9 Type 2 diabetes mellitus without complications; E78.5 Hyperlipidemia, unspecified; Z79.899 Other long term (current) drug therapy
CPT/HCPCS: 36415; 71045; 80053; 83880; 84484; 85025; 85379; 85610; 85730; 93005; 93041; 96372; 99284; J1885

== ENCOUNTER 2022-05-15 07:01 | Day surgery (SDC) | payer OTHER ==
[~2022-05-15 07:01] MED LIST: Lactated Ringers 1,000 ML IV ONE
[2022-05-15] MEDS ORDERED: EXPAREL 133 MG/10 ML VIAL IJ ONE (07:02)
[2022-05-15] MEDS ORDERED: Lactated Ringers 1,000 ML IV ONE (07:24)
[2022-05-15] MEDS ORDERED: CLINDAMYCIN-D5W 900 MG/50 ML*** 900 MG/50 ML BAG IV ONE (07:24)
[2022-05-15] MEDS ORDERED: Lactated Ringers 1,000 ML IV SCH (07:30)
[2022-05-15] MEDS ORDERED: CLINDAMYCIN-D5W 900 MG/50 ML*** 900 MG/50 ML BAG IV SCH (07:30)
[2022-05-15] MEDS ORDERED: Versed 2 MG/2 ML Injection ONE (09:19)
[2022-05-15] MEDS ORDERED: DIPRIVAN 200 MG/20 ML IV ONE (09:19)
[2022-05-15] MEDS ORDERED: SUBLIMAZE 100 MCG/2 ML ONE ×2 (09:19→11:56)
[2022-05-15] MEDS ORDERED: TORAdol 30 mg Injection ONE (09:20)
[2022-05-15] MEDS ORDERED: OFIRMEV 100 ML IV ONE (09:20)
[2022-05-15] MEDS ORDERED: Quelicin Fliptop 200 MG/10 ML ONE ×2 (09:20→10:20)
[2022-05-15] MEDS ORDERED: Xylocaine-Mpf 2% 5 Ml Vial ONE (09:20)
[2022-05-15] MEDS ORDERED: Decadron 4 MG INJ ONE (09:20)
[2022-05-15] MEDS ORDERED: Zofran 4 MG/2 ML VIAL ONE (09:20)
[2022-05-15] MEDS ORDERED: Magnesium Sulfate 1 GM/2 ML VIAL ONE (09:22)
[2022-05-15] MEDS ORDERED: Sensorcaine 0.25% 10 ML ONE (09:22)
[2022-05-15] MEDS ORDERED: Pre-Attached Lta Kit TP ONE (09:22)
[2022-05-15] MEDS ORDERED: Naropin 0.5% 30 ML VIAL ONE (09:24)
[2022-05-15] MEDS ORDERED: DEXMEDETOMIDINE 80 MCG/20ML-NS IV ONE (09:24)
[2022-05-15] MEDS ORDERED: Ketamine HCl 50 MG/ML ONE (09:30)
[2022-05-15] MEDS ORDERED: Epinephrine Preservative Free 1 MG/ML ONE ×2 (09:32→11:44)
[2022-05-15] MEDS ORDERED: Zemuron 100 MG/10 ML ONE (10:32)
[2022-05-15] MEDS ORDERED: PHENYLEPHRINE HCL ONE (11:17)
[2022-05-15] MEDS ORDERED: REMIFENTANIL HCL IV ONE (12:26)
[2022-05-15] MEDS ORDERED: BRIDION 200MG/2ML IV ONE (12:45)
--- NOTE | 2022-05-15 13:10 | XRAY ---
Indication: Right ankle loose body removal and stabilization. Intraoperative fluoroscopy provided for 2 minutes 41 seconds. 107 digital spot images submitted for interpretation demonstrates right ankle surgery with manual manipulation. Correlate with intraoperative findings/report.
[2022-05-15 14:40] VITALS: BP 122/77; PULSE 109; O2SAT 96
--- NOTE | 2022-05-15 15:19 | XRAY ---
2 minutes and 41 seconds fluoroscopy time used in surgery for removal of loose body and right ankle stabilization.
--- NOTE | 2022-05-18 11:52 | OP ---
SURGERY DATE/TIME: 05/15/2022 1022 PREOPERATIVE DIAGNOSES: 1) Pain right ankle. 2) Loose body right ankle. 3) Ankle synovitis. 4) Lateral ankle instability. 5) Tibial exostosis. POSTOPERATIVE DIAGNOSES: 1) Pain right ankle. 2) Loose body right ankle. 3) Ankle synovitis. 4) Lateral ankle instability. 5) Tibial exostosis. 6) Osteochondral defect to medial talar bone. PROCEDURES: 1) Ankle arthroscopy with extensive synovectomy right ankle. 2) Removal of loose body arthroscopic. 3) Removal of tibial exostosis arthroscopic. 4) Microfracture of osteochondral lesion talus, medial talar dome. 5) Lateral ankle stabilization with Foster internal brace. SURGEON: Lele Cruz DPM. BUSINESS CENTER REPRESENTATIVE: None. ANESTHESIA: General plus a preoperative popliteal and saphenous block. ESTIMATED BLOOD LOSS: Less than 10 cc. MATERIALS: 4-0 Monocryl, 3-0 Nylon, Foster anterior talofibular ligament internal brace with 2.9 JuggerKnot with BroadBand and a 2.9 Quattro Link. INDICATION FOR SURGERY: Naty is a very pleasant 36-year-old female very well known to my service for pain to the right ankle. The pain has been ongoing for quite some time. I have seen this patient several times and have planned for surgery however, the patient has postponed surgical intervention. The patient has obvious loose bodies in the right ankle as well as significant tibial exostosis that has been causing her significant amount of pain. The patient does have an extensive history of lateral instability as well while has developed more issues as time has gone on. The patient was informed that delaying the surgery with a loose body could lead to situations similar to that early degenerative changes to the joint. At this point the patient has finally made the decision to proceed with surgical intervention. The patient understands all risks, benefits and complications of the surgical intervention including but not limited to infection, hematoma, seroma, possibility of delayed wound healing, nonwound healing, possibility of neuritis, possibility of return of exostosis and possibility of failure of stabilization procedure. There were no guarantees made to the outcome of surgical intervention however the goal is to reduce pain and improve function as the patient gets back up in a weightbearing fashion. The patient understands all of this. Plenty of time was allowed for the patient to ask questions which were answered to the patient's apparent satisfaction. It is with that we decided to proceed. DESCRIPTION OF PROCEDURE AND FINDINGS: The patient is brought into the OR and placed on the OR table in the supine position. At this time, general anesthesia was administered. A well-padded thigh tourniquet was applied. The tourniquet was set to 300 mm of Mercury and the right lower extremity is prepped and draped in the typical sterile fashion. At this time attention was directed to the anterior ankle joint where mapping took place of the medial malleolus, lateral malleolus and the palpable dell of the ankle joint when the foot was flexed into dorsiflexion. These sites were made apparent. Lines were drawn between these. A mid-point was picked between the medial malleolus and the anterior dell of the leg just medial to the tibialis anterior tendon. An 18 gauge needle with some lactated Ringer's was utilized to insufflate the ankle causing dorsiflexion of ankle at this time. An 11 blade was then utilized to make a small linear incision through the skin which was deepened utilizing a mini-curve hemostat until lactated Ringer's was depreciated at the anterior ankle capsule. A 4.0 mm scope was then introduced into the medial aspect of the site, fluid was turned on and visualization of the joint was made. At this time significant amount of synovitis was encountered. The light was then utilized to inspect the entry sites for anterior lateral portals this was done under direct fluoroscopic visualization so as not to make damage to the superficial peroneal nerve. Once again an 11 blade was introduced and a mini-curved hemostat was introduced into the ankle joint and triangulation took place identifying the mini-curved hemostats immediately. At this time the shaver was introduced and shaving of the synovitis took place until extensive amount of crabmeat synovitis as well as degeneration of the ankle joint was cleaned up. Just underneath the anterior talofibular ligament the loose body that was prominent within the x-rays this was removed utilizing a combination of graspers and pituitary rongeurs. At this time this was handed off the field and sent for pathologic assessment. Inspection of the preoperative x-rays lead me to believe this is likely an osteochondroma, a benign bone tumor. At this time the tibial osteophyte was removed utilizing a hooded bowel under direct visualization of the scope as well as under fluoroscopic guidance. Following this copious amounts of sterile saline were utilized to flush the site and the shaver was introduced back into the joint in order to remove any of the bone fragments in the operative site. At this time a probe was utilized to inspect the cartilage at the medial shoulder of the talar dome anteriorly. There was some indications of an osteochondral defect where the probe dropped down into a dell. The shaver was then utilized to remove some of the cartilaginous area that was denuded and a pick was utilized to drill a hole until an oily foul-like substance emerged from the bone, this was once again curettaged until almost completely circular in nature. Pictures were taken along the way and were followed into the patient's digit of toe. At this time the scope was removed from the ankle joint and attention was directed to the lateral aspect of the ankle. Under fluoroscopic guidance incision placements were identified over the distal tip of the fibula and to the lateral aspect of the talar body and neck. At this time the incision was deepened being careful not to damage any neurovascular structures along the way. The superficial peroneal nerve was encountered and was retracted out of the site. Dissection of the anterior talofibular ligament was first performed as well as the extensor retinaculum for later use in the procedure. Following this a 15 blade was utilized to make an incision leaving a 2 mm cut off of the distal rim of the fibula with the anterior talofibular ligament. At this time the lateral aspect of the talar body was inspected. There was some degenerative changes that were appreciated at the lateral talar dome which was resected at this time of any nonviable and irritating bony protrusions. Following this copious amounts of sterile saline were utilized to flush the site. The anterior talofibular ligament was removed from its footprint. Under fluoroscopic guidance the 2.9 JuggerKnot with BroadBand was introduced into the talar body at the lateral aspect of the body transition to the talar neck within the sinus tarsi this gained good compression and the ankle was utilized to anchor down this position into the distal footprint of the anterior talofibular ligament. Two JuggerKnot's smaller size 1.7 JuggerKnot were introduced just proximal and distal to the internal brace to gain capture into the remnant of the anterior talofibular ligament this first was integrated into the anterior talofibular ligament tendon and tied down for security and then thrown again into the extensor retinaculum for more secure and robust tension. A small lip of the periosteum was lifted. The knots were tied down and then the periosteum was repaired leading to a situation where the knots would not become irritating at the surface of the skin this was all performed will the foot was held in a neutral position. Following this copious amounts of sterile saline were utilized the surgical site. A 4-0 Monocryl was utilized to coapt the subcutaneous skin edges in a simple interrupted buried-type fashion and then the skin was coapted in a horizontal mattress-type fashion to mel the skin edges. The portals where the arthroscopy portion of the case was performed with horizontal mattress-type fashion suture as well. Tourniquet was let down at a total of 107 total tourniquet minutes. Estimated blood loss was around 10 cc. Postoperative dressing consisting of Betadine, Adaptic, 4x4, Kerlix and a well-padded posterior splint was applied to the patient's right lower extremity with the foot orthogonal relative to longitudinal aspect of the leg. The patient then was reversed from anesthesia returned to the postoperative anesthesia care unit with vital signs stable and vascular status intact. The patient handled the anesthesia as well as the procedure without significant complication. Postoperative orders as indicated in the patient's discharge chart.
== END 2022-05-15 14:55 | disposition home or self-care (01) ==
LOC: SDC 07:01
PROVIDERS: ATTEND Podiatrist Foot & Ankle Surgery
DX: M65.871 Other synovitis and tenosynovitis, right ankle and foot (principal); M25.571 Pain in right ankle and joints of right foot; M24.071 Loose body in right ankle; E11.9 Type 2 diabetes mellitus without complications; M25.371 Other instability, right ankle; M89.9 Disorder of bone, unspecified; M21.961 Unspecified acquired deformity of right lower leg
CPT/HCPCS: 01464; 01470; 01480; 27635; 27640; 27696; 29891; 29894; 29898; 64447; 64450; 73610; 76000; 76937; 76942; 81025; 82947; C1713; J0171; J0330; J1100; J1885; J2250; J2370; J2405; J2704; J2795; J3010; J3475

== ENCOUNTER 2022-05-29 16:41 | Emergency (ER) | payer OTHER ==
[2022-05-29 16:54] VITALS: O2SAT 99
--- NOTE | 2022-05-29 17:57 | ERPHSYRPT ---
- History of Present Illness Time Seen by Provider: 05/29/22 17:00 Source: patient Exam Limitations: no limitations Patient Subjective Stated Complaint: pt here for swelling to lower right leg , with numbness to foot and toes, she has a cast on right lower leg, she states she had surgery on ankle 2 weeks ago, Triage Nursing Assessment: pt alert, resp easy, skin w/d/p, has cart to lower right left , toes warm and nail beds pink , able to get 2 finger under cast Physician History: Patient is a 36-year-old female who 2 weeks ago had surgery with Dr. Royal of the right ankle hardware was removed there was recent reconstruction of torn ligaments etc. she presents tonight with a complaint that her cast is too tight that if she lets it down at all she gets horrible swelling and pain she has an appoint with Dr. Royal on Wednesday. Method of Injury: incised Lower Extremities Pain: ankle: right Modifying Factors: Improves With: movement Allergies/Adverse Reactions: loratadine [From Claritin] Allergy (Severe, Verified 05/29/22 16:56) Anaphylactic Reaction levothyroxine sodium [From Euthyrox] Allergy (Intermediate, Verified 05/29/22 16:56) Hives Penicillins Allergy (Mild, Verified 05/29/22 16:56) orange (food color) Allergy (Verified 05/29/22 16:56) Home Medications: Levothyroxine Sodium 75 Mcg [Synthroid 75 Mcg] 75 mcg PO DAILY 10/16/12 [History] Cetirizine HCl/Pseudoephedrine [Zyrtec-D Tablet] 1 tab PO HS 07/24/19 [History] Omeprazole [Prilosec] 40 mg PO DAILY 07/24/19 [History] Triamterene/Hydrochlorothiazid [Triamterene-Hctz 75-50 mg Tab] 75 mg PO DAILY 12/19/21 [History] Cyanocobalamin (Vitamin B-12) [Vitamin B12] 1 tab PO UD 04/14/22 [History] Amlodipine Besylate 5 mg [Norvasc 5 mg] 10 mg PO DAILY 05/15/22 [History] Hydroxyzine HCl 25 mg [Atarax 25 mg] 10 mg PO UD PRN 05/15/22 [History] Hx Tetanus, Diphtheria Vaccination/Date Given: Yes Hx Influenza Vaccination/Date Given: Yes Hx Pneumococcal Vaccination/Date Given: No Immunizations Up to Date: No Travel Risk - International Travel Have you traveled outside of the country in past 3 weeks: No - Coronavirus Screening Are you exhibiting any of the following symptoms?: No Close contact with a COVID-19 positive Pt in past 14-21 Days: No - Vaccine Status Have you recieved a Covid-19 vaccination: Yes 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: [employer] - Vaccination Dates Date of 2cond Vaccination (if applicable): 2020 - Review of Systems Constitutional: No Fever, No Chills Eyes: No Symptoms Ears, Nose, & Throat: No Symptoms Respiratory: No Cough, No Dyspnea Cardiac: No Chest Pain, No Edema, No Syncope Abdominal/Gastrointestinal: No Abdominal Pain, No Nausea, No Vomiting, No Diarrhea Genitourinary Symptoms: No Dysuria Musculoskeletal: No Back Pain, No Neck Pain Skin: No Rash Neurological: No Dizziness, No Focal Weakness, No Sensory Changes Psychological: No Symptoms Endocrine: No Symptoms All Other Systems: Reviewed and Negative - Past Medical History Pertinent Past Medical History: Yes Neurological History: Migraines ENT History: No Pertinent History Cardiac History: Arrhythmia, High Cholesterol, Hypertension Respiratory History: Asthma Endocrine Medical History: Diabetes Type II, Hypothyroidism Musculoskeletal History: No Pertinent History GI Medical History: No Pertinent History Psycho-Social History: Anxiety, Depression, Panic Disorder Other Medical History: METFORMIN (SHE CURRENTLY HASN'T BEEN TAKING HER BLOOD SUGARS HAVE BEEN RUNNING LOW).; BILATERAL CARPAL TUNNEL SYNDROME AND PLANS TO HAVE RIGHT CTR IN 02/09. SHE REPORTS HER HANDS GO NUMB CONSTANTLY - Past Surgical History Past Surgical History: Yes Neuro Surgical History: No Pertinent History Cardiac: No Pertinent History Respiratory: No Pertinent History Gastrointestinal: No Pertinent History Genitourinary: No Pertinent History Musculoskeletal: No Pertinent History, Orthopedic Surgery Female Surgical History: Tubal Ligation Other Surgical History: uterine ablation. carpal tunnel right hand. wisdon teeth removal - Social History Smoking Status: Former smoker Exposure to second hand smoke: Yes Drug Use: none Patient Lives Alone: No Significant Family History: no pertinent family hx - Female History Hx Last Menstrual Period: occ Hx Now: No - Nursing Vital Signs Nursing Vital Signs: Initial Vital Signs Temperature 97.0 F 05/29/22 16:52 Pulse Rate 96 H 05/29/22 16:52 Respiratory Rate 18 05/29/22 16:52 Blood Pressure 145/93 05/29/22 16:52 O2 Sat by Pulse Oximetry 99 05/29/22 16:52 Pain Scale Pain Intensity 0 - Physical Exam General Appearance: mild distress, alert Eyes, Ears, Nose, Throat Exam: moist mucous membranes Neck Exam: non-tender, supple Cardiovascular/Respiratory Exam: chest non-tender, normal breath sounds, regular rate/rhythm, no respiratory distress Gastrointestinal/Abdominal Exam: non-tender, guarding Back Exam: normal inspection, No vertebral tenderness Hips Exam: bilateral: non-tender, normal inspection, normal range of motion Ankle Exam: right ankle: other (Patient has a short leg cast on which does not seem to be constricting at all her cap refill is good her dorsal pedal [place] pulse can be reached and is positive she has good room above no sign of any constriction or ischemia etc.) Neuro/Tendon Exam: normal sensation, normal motor functions Mental Status Exam: alert, oriented x 3, cooperative Skin Exam: normal color, warm, dry SpO2 Interpretation: normal SpO2: 99 O2 Delivery: Room Air Ordered Tests: Active Orders 24 hr Category Date Time Status ANKLE (3 VIEWS) Stat Exams 05/29/22 17:06 Taken - Progress Progress: unchanged Discussed with : Carol Ann (Dr. Royal was reached by phone and feels that she should wait till Wednesday to see him in the office for cast removal.) Will see patient in: office Medical Desision Making - Diagnostic Testing Radiological Interpretation: Interpreted by me - Risk of complications Minimal Risk: Minimal risk of morbidity - Departure Departure Disposition: Home Clinical Impression: Postoperative examination Condition: Stable Critical Care Time: No Referrals: LATHA RM [Primary Care Provider] - Follow up/PCP as directed Instructions: Cast Care ED
[2022-05-29 18:01] VITALS: BP 150/96; PULSE 72
--- NOTE | 2022-05-29 19:14 | XRAY ---
Indication: Pain following surgery 2 weeks ago. Comparison: May 21, 2022 3 view right ankle demonstrates new overlying cast material limiting evaluation for fine bony detail. Grossly stable postsurgical changes including partial resection distal tibia anteriorly and lateral malleolus radiolucencies. No gross new/acute abnormalities.
== END 2022-05-29 18:14 | disposition home or self-care (01) ==
LOC: ED 16:41
DX: Z09 Encounter for follow-up examination after completed treatment for conditions other than malignant neoplasm (principal); M25.571 Pain in right ankle and joints of right foot; M79.604 Pain in right leg; E78.5 Hyperlipidemia, unspecified; I10 Essential (primary) hypertension; E11.9 Type 2 diabetes mellitus without complications; Z79.84 Long term (current) use of oral hypoglycemic drugs; Z79.899 Other long term (current) drug therapy
CPT/HCPCS: 73610; 99282

== ENCOUNTER 2024-12-22 16:40 | Emergency (ER) | payer SELFPAY ==
[2024-12-22 17:00] VITALS: PULSE 109; TEMP 97.4; O2SAT 97
--- NOTE | 2024-12-22 17:29 | ERPHSYRPT ---
- History of Present Illness Time Seen by Provider: 12/22/24 17:09 Source: patient Patient Subjective Stated Complaint: pt has had high blood pressure for a couple of days and was sent home from work due to it, pt states that the pharmacy was out of her amlodipine and she has now started taking it for a few days but can't get her pressure down Triage Nursing Assessment: Pt brought self to the ER, hypertensive, tachycardic, denies pain, pulses normal, skin n/w/d, asymptomatic, denies chest pain, no shortness of breath, doesn't appear to be in any distress Physician History: Patient is a 39-year-old female with a history of hypertension who presents with hypertension and tachycardia. Patient reports that she was sent home from work for the past few days because her blood pressure was high. She reports that they checked her blood pressure at work because she was feeling flushed and "looked really bad". She reports that she is typically on triamterene hydrochlorothiazide and amlodipine. She reports that the pharmacy was out of the amlodipine so she was off of it for a few days. She reports that she has been taking it for the past 4 days. She reports that her last dose of the triamterene-hydrochlorothiazide was yesterday at 1600 and her last dose of the amlodipine was yesterday at 2100. 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 She reports that it was 217/165. She became extremely anxious about the elevated blood pressure so she came for further evaluation. The patient denies any current headache, chest pain, shortness of breath, nausea, vomiting, or vision changes. Allergies/Adverse Reactions: loratadine [From Claritin] Allergy (Severe, Verified 12/22/24 17:00) Anaphylactic Reaction levothyroxine sodium [From Euthyrox] Allergy (Intermediate, Verified 12/22/24 17:00) Hives Penicillins Allergy (Mild, Verified 12/22/24 17:00) orange (food color) Allergy (Verified 12/22/24 17:00) lisinopril Adverse Reaction (Verified 12/22/24 17:00) Home Medications: Levothyroxine Sodium 75 Mcg [Synthroid 75 Mcg] 75 mcg PO DAILY 10/16/12 [History] Triamterene/Hydrochlorothiazid [Triamterene-Hctz 75-50 mg Tab] 75 mg PO DAILY 12/19/21 [History] Amlodipine Besylate 5 mg [Norvasc 5 mg] 10 mg PO DAILY 05/15/22 [History] Hydroxyzine HCl 25 mg [Atarax 25 mg] 10 mg PO UD PRN 05/15/22 [History] Cholecalciferol (Vitamin D3) [Vitamin D] 1,000 unit PO WEEKLY 12/22/24 [History] Cyanocobalamin (Vitamin B-12) [Cyanocobalamin Injection] 1,000 mcg IJ .EVERY 30 DAYS 12/22/24 [History] Hx Tetanus, Diphtheria Vaccination/Date Given: Yes Hx Influenza Vaccination/Date Given: Yes Hx Pneumococcal Vaccination/Date Given: No Travel Risk - International Travel Have you traveled outside of the country in past 3 weeks: No - Emerging Infectious Disease Are you exhibiting symptoms associated with any current EIDs: No - Review of Systems Constitutional: No Fever Eyes: No Symptoms Respiratory: No Symptoms, No Cough, No Dyspnea, No Dyspnea on Exertion (EPPERSON) Cardiac: No Chest Pain, No Edema Abdominal/Gastrointestinal: No Abdominal Pain, No Nausea, No Vomiting Musculoskeletal: No Symptoms Neurological: No Dizziness, No Headache - Past Medical History Pertinent Past Medical History: Yes Neurological History: Migraines ENT History: No Pertinent History Cardiac History: Arrhythmia, High Cholesterol, Hypertension Respiratory History: Asthma Endocrine Medical History: Diabetes Type II, Hypothyroidism Musculoskeletal History: No Pertinent History, Fractures GI Medical History: No Pertinent History Psycho-Social History: Anxiety, Depression, Panic Disorder Other Medical History: METFORMIN (SHE CURRENTLY HASN'T BEEN TAKING HER BLOOD SUGARS HAVE BEEN RUNNING LOW).; BILATERAL CARPAL TUNNEL SYNDROME AND PLANS TO HAVE RIGHT CTR IN 02/09. SHE REPORTS HER HANDS GO NUMB CONSTANTLY - Past Surgical History Past Surgical History: Yes Neuro Surgical History: No Pertinent History Cardiac: No Pertinent History Respiratory: No Pertinent History Gastrointestinal: No Pertinent History Genitourinary: No Pertinent History Musculoskeletal: No Pertinent History, Orthopedic Surgery Female Surgical History: Tubal Ligation Other Surgical History: uterine ablation. carpal tunnel right hand. wisdon teeth removal Significant Family History: no pertinent family hx - Female History Hx Last Menstrual Period: currently Hx Now: No (tubal and ablasion) - Social History Smoking Status: Former smoker Exposure to second hand smoke: No Drug Use: none - Social Determinants of Health Will the patient participate in the screening: Yes Do you worry about a steady place to live?: No Do you have any problems with any of the following?: No known problems In the past 12 months,have you had to go without utilities?: No Transportation Issues: No Has anyone in your support network made you feel unsafe?: No Have you or anyone in your house had to go w/o enough food: No - Nursing Vital Signs Nursing Vital Signs: Initial Vital Signs Temperature 97.4 F 12/22/24 16:50 Pulse Rate 109 H 12/22/24 16:50 Blood Pressure 147/102 12/22/24 16:50 O2 Sat by Pulse Oximetry 97 12/22/24 16:50 Pain Scale Pain Intensity 0 - Physical Exam General Appearance: mild distress (Appears mildly anxious) Eye Exam: PERRL/EOMI Neck Exam: normal inspection Respiratory Exam: normal breath sounds Cardiovascular Exam: tachycardia Gastrointestinal/Abdomen Exam: soft, normal bowel sounds, No tenderness Back Exam: normal inspection Extremity Exam: normal inspection, normal range of motion Neurologic Exam: alert, oriented x 3, cooperative Skin Exam: normal color SpO2 Interpretation: normal SpO2: 97 - Course EKG Interpreted by Me: RATE ([id number]), Sinus Tach, NORMAL AXIS, NORMAL INTERVALS, NORMAL QRS, Non-specific ST Changes Ordered Tests: Active Orders 24 hr Category Date Time Status EKG-ER Only STAT Care 12/22/24 17:32 Completed - Progress Progress Note: 12/22/24 17:30 Discussed options of checking lab work, chest x-ray, and/or head CT based on the patient's symptoms. Discussed that the patient's blood pressure was not in the range that I would recommend giving antihypertensives due to the concern for hypotension. Patient expressed understanding and declined further evaluation at this time. Patient stated that she would follow-up with her primary care provider. Recommended that the patient keep a record of her blood pressure. Recommended that the patient return immediately if she develops chest pain, shortness of breath, headache, or vision changes. Patient expressed understanding. - Departure Departure Disposition: Home Clinical Impression: Hypertension Qualifiers: Hypertension type: primary hypertension Qualified Code(s): I10 - Essential (primary) hypertension Condition: Stable Critical Care Time: No Referrals: LATHA RM [Primary Care Provider, [facility]] - Follow up/PCP as directed Instructions: High blood pressure in adults Additional Instructions: Keep a record of your blood pressures. Take your medications when you get home. Follow up with your primary care provider as directed. Return to the emergency department if symptoms worsen such as chest pain, shortness of breath, headache, or vision changes. Forms: Work/School Release Form
[2024-12-22 17:32] VITALS: BP 137/98
== END 2024-12-22 17:35 | disposition home or self-care (01) ==
LOC: ED 16:40
DX: I10 Essential (primary) hypertension (principal); R00.0 Tachycardia, unspecified